=== PATIENT | male | born 1955 | race Caucasian/White ===

== ENCOUNTER 2020-09-06 17:32 | Emergency (ER) | payer MEDICARE ==
[~2020-09-06] VITALS: Ht 182.9 cm; Wt 95.3 kg
[2020-09-06] MEDS ORDERED: LIPITOR10 MG PO (17:51)
[2020-09-06] MEDS ORDERED: ASA81BEC PO (17:52)
[2020-09-06] MEDS ORDERED: OMEPRAZOLE 20 M20 M1 PO (17:52)
[2020-09-06] MEDS ORDERED: VITAMIN D310 MC2 (17:52)
[2020-09-06 18:17] LABS: ABSOLUTE BASOPHILS 0.1 thou/uL (0.0-0.2); ABSOLUTE MONOCYTES 0.4 thou/uL (0.0-1.2); ABSOLUTE NEUTROPHILS 8.9 thou/uL (1.6-8.1); BASOPHILS 0.7 %; EOSINOPHILS 0.3 %; HEMATOCRIT 31.6 % (42.0-52.0); HEMOGLOBIN 10.1 gm/dL (14.0-18.0); LYMPHOCYTES 10.1 %; MCH 23.7 pg (26.0-34.0); MCHC 31.9 g/dL (28.0-37.0); MCV 74.2 fL (80.0-100.0); MPV 8.3 fl. (7.2-11.1); NUCLEATED RBCS 0 /100WBC; PLATELET COUNT* 325 thou/uL (150-400); POLYS 84.9 %; RBC 4.26 mil/uL (4.50-6.00); RDW-CV 15.7 % (10.5-14.5); WBC 10.4 thou/uL (4.0-11.0)
[2020-09-06 18:34] LABS: CALCIUM 8.7 mg/dL (8.5-10.1); CREATININE 1.4 mg/dL (0.6-1.3); POTASSIUM 3.5 mmol/L (3.5-5.1)
[2020-09-06 18:36] LABS: INR 1.1; PROTIME 11.2 Seconds (9.20-11.50)
[2020-09-06 18:39] LABS: ALBUMIN 4.1 g/dL (3.4-5.0); TOTAL BILIRUBIN 0.6 mg/dL (<0.1-1.0); TOTAL PROTEIN 7.3 g/dL (6.4-8.2)
[2020-09-06 19:55] LABS: URINE BILIRUBIN NEGATIVE (Negative); URINE BLOOD 3+ (Negative); URINE CLARITY CLEAR; URINE COLOR YELLOW; URINE GLUCOSE-RANDOM NEGATIVE (Negative); URINE KETONES TRACE (Negative); URINE LEUKOCYTES NEGATIVE (Negative); URINE NITRITE NEGATIVE (Negative); URINE PROTEIN NEGATIVE (Negative); URINE UROBILINOGEN 0.2 E.U./dl (0.2-1.0)
[2020-09-06 20:00] LABS: SQUAMOUS NONE SEEN /LPF (0-3)
[2020-09-06 20:01] LABS: CASTS None Seen /LPF (None Seen); CRYSTALS None Seen /LPF (None Seen); MUCUS 0-3 Light strn/LPF (None Seen); URINE RBC >20 Many /HPF (0-2); URINE WBC 0-5 Rare /HPF (0-5)
[2020-09-06] MEDS ORDERED: FLOMAX0.4 MG PO (20:30)
[2020-09-06] MEDS ORDERED: ZOFRAN ODT4 MG PO (20:30)
[2020-09-06] MEDS ORDERED: HYDROCODON-ACE1 EAC7 PO (20:31)
[2020-09-06 20:42] VITALS: BP 122/84
--- NOTE | 2020-09-07 15:58 | EKG ---
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
== END 2020-09-06 20:43 | disposition home or self-care (01) ==
LOC: M.ERS 17:32
PROVIDERS: Physician Assistant
DX: N20.0 Calculus of kidney (principal); Z79.82 Long term (current) use of aspirin; Z79.899 Other long term (current) drug therapy